=== PATIENT | male | born 1995 | race African-American/Black ===

== ENCOUNTER 2017-11-29 11:24 | Emergency (ER) | payer MEDICAID, OTHER | END 2017-11-29 14:01 | disposition home or self-care (01) | LOC: FTE 11:24 | DX: S00.83XA Contusion of other part of head, initial encounter (principal); M62.838 Other muscle spasm; R07.9 Chest pain, unspecified; V49.40XA Driver injured in collision with unspecified motor vehicles in traffic accident, initial encounter | CPT/HCPCS: 70250; 71046; 72040; 99284-25 ==

== ENCOUNTER → 2018-11-24 | Emergency (ER) | payer MEDICAID, OTHER | END | disposition home or self-care (01) | LOC: FTE 13:16 | DX: L02.01 Cutaneous abscess of face (principal) | CPT/HCPCS: 99283; Z7502 ==

== ENCOUNTER 2018-11-28 14:19 | Emergency (ER) | payer OTHER, MEDICAID ==
[2018-11-28] MEDS: LIDOCAINE 1% (MDV) 20 ML INJ SC (15:29)
== END 2018-11-28 17:07 | disposition home or self-care (01) ==
LOC: FTE 14:19
DX: L02.01 Cutaneous abscess of face (principal)
CPT/HCPCS: 10060; 99283-25

== ENCOUNTER 2018-11-30 10:10 | Emergency (ER) | payer OTHER, MEDICAID | END 2018-11-30 12:36 | disposition home or self-care (01) | LOC: E/R 10:10 | DX: Z48.01 Encounter for change or removal of surgical wound dressing (principal) | CPT/HCPCS: 99281; Z7502 ==